=== PATIENT | male | born 1955 | race Caucasian/White ===

== ENCOUNTER 2017-10-10 14:18 | Inpatient (IN) | payer MEDICARE, OTHER, MEDICAID ==
[2017-10-10] MEDS: morphine 4 MG/ML VIAL IV (19:07)
[2017-10-10] MEDS: SOD CHLORIDE 0.9% 1,000 ML IV ×2 (19:07→20:43)
[2017-10-10] MEDS: ONDANSETRON 4 MG INJ IV (19:07)
[2017-10-10 19:09] LABS: ADD MAN DIFF? NO
[2017-10-10 19:11] LABS: BASOPHILS % 0.2 % (0.0-2.0); EOSINOPHILS # 0.2 10^3/ul (0.0-0.5); EOSINOPHILS % 2.1 % (0.0-7.0); HEMOGLOBIN 8.3 g/dl (14.0-18.0); LYMPHOCYTES % 11.2 % (15.0-51.0); MEAN CORPUSCULAR HEMOGLOBIN 27.7 pg (29.0-33.0); MEAN CORPUSCULAR HGB CONC 31.9 g/dl (32.0-37.0); MEAN CORPUSCULAR VOLUME 86.7 fl (82.0-101.0); MEAN PLATELET VOLUME 9.8 fl (7.4-10.4); MONOCYTE # 0.7 10^3/ul (0.3-0.9); MONOCYTES % 8.1 % (0.0-11.0); NEUTROPHILS % 78.1 % (39.0-77.0); PLATELET COUNT 226 10^3/UL (140-415); RED CELL DISTRIBUTION WIDTH 16.6 % (11.5-14.5)
[2017-10-10 19:11] LABS: WHITE BLOOD COUNT 8.9 10^3/ul (4.8-10.8)
[2017-10-10 19:33] LABS: ALANINE AMINOTRANSFERASE 24 IU/L (13-69); ALBUMIN 4.1 g/dl (3.3-4.9); ALBUMIN/GLOBULIN RATIO 1.13; ALKALINE PHOSPHATASE 62 IU/L (42-121); ANION GAP 21 (8-16); ASPARTATE AMINO TRANSFERASE 21 IU/L (15-46); BILIRUBIN,INDIRECT 0.3 mg/dl (0-1.1); BILIRUBIN,TOTAL 0.3 mg/dl (0.2-1.3); CALCIUM 9.4 mg/dl (8.4-10.2); CARBON DIOXIDE 24 mmol/L (21-31); CHLORIDE 108 mmol/L (97-110); CREATININE 2.84 mg/dl (0.61-1.24); GLUCOSE 111 mg/dl (70-220); LIPASE 159 U/L (23-300); POTASSIUM 4.6 mmol/L (3.5-5.1); SODIUM 148 mmol/L (135-144); TOTAL PROTEIN 7.7 g/dl (6.1-8.1)
[2017-10-10 19:41] LABS: BLOOD UREA NITROGEN 122 mg/dl (7-20)
[2017-10-10 19:58] LABS: ADD UMIC YES; UR ASCORBIC ACID NEGATIVE (NEGATIVE); UR BACTERIA FEW /HPF (NONE SEEN); UR BILIRUBIN (Dip) NEGATIVE (NEGATIVE); UR BLOOD (Dip) NEGATIVE (NEGATIVE); UR CLARITY CLEAR (CLEAR); UR COLOR STRAW (YELLOW); UR GLUCOSE (Dip) NEGATIVE (NEGATIVE); UR KETONES (Dip) NEGATIVE (NEGATIVE); UR LEUKOCYTE ESTERASE (Dip) NEGATIVE Leu/ul (NEGATIVE); UR NITRITE (Dip) NEGATIVE (NEGATIVE); UR RBC 0 /HPF (0-5); UR SPECIFIC GRAVITY (Dip) 1.009 (1.003-1.030); UR TOTAL PROTEIN (Dip) 1+ mg/dl (NEGATIVE); UR UROBILINOGEN (Dip) NEGATIVE (NEGATIVE); UR WBC 0 /HPF (0-5)
[2017-10-10] MEDS ORDERED: ALTEPLASE 100 MG INJ IV* (21:30)
[2017-10-10] MEDS ORDERED: ALTEPLASE (tPA) 1 MG/ML BOLUS SYG IV* (21:30)
[2017-10-10] MEDS ORDERED: NACL 0.9% 3 ML SYG IV (22:00)
[2017-10-10] MEDS: morphine 2 MG INJ IV (22:53)
[2017-10-10] MEDS: DEXTROSE 5%-0.45% NACL 1,000 ML IV (22:53)
[2017-10-10 23:15] LABS: IRON 36 ug/dl (35-150)
[2017-10-10 23:25] LABS: % IRON SATURATION 12 % SAT (22-52); TOTAL IRON BINDING CAPACITY 299 ug/dl (241-421)
[2017-10-11] MEDS: HALOPERIDOL 5 MG INJ IM (00:30)
[2017-10-11] MEDS: morphine 2 MG INJ IV ×2 (04:09→18:12)
[2017-10-11] MEDS: hydrALAzine 20 MG INJ IV (04:18)
[2017-10-11] MEDS: INSULIN ASPART [NOVOLOG] 3 ML PEN SC ×5 (04:38→21:00)
[2017-10-11 05:34] LABS: ADD MAN DIFF? NO
[2017-10-11 05:37] LABS: BASOPHILS % 0.3 % (0.0-2.0); EOSINOPHILS # 0.2 10^3/ul (0.0-0.5); EOSINOPHILS % 3.2 % (0.0-7.0); HEMOGLOBIN 8.2 g/dl (14.0-18.0); LYMPHOCYTES # 1.3 10^3/ul (0.8-2.9); LYMPHOCYTES % 18.7 % (15.0-51.0); MEAN CORPUSCULAR HEMOGLOBIN 27.5 pg (29.0-33.0); MEAN CORPUSCULAR HGB CONC 31.5 g/dl (32.0-37.0); MEAN CORPUSCULAR VOLUME 87.2 fl (82.0-101.0); MEAN PLATELET VOLUME 9.6 fl (7.4-10.4); MONOCYTE # 0.7 10^3/ul (0.3-0.9); MONOCYTES % 10.6 % (0.0-11.0); NEUTROPHIL # 4.7 10^3/ul (1.6-7.5); NEUTROPHILS % 66.9 % (39.0-77.0); PLATELET COUNT 227 10^3/UL (140-415); RED BLOOD COUNT 2.98 10^6/ul (4.70-6.10); RED CELL DISTRIBUTION WIDTH 16.6 % (11.5-14.5)
[2017-10-11 05:49] LABS: HEMOGLOBIN A1C 6.2 % (0-5.9)
[2017-10-11 06:10] LABS: ALANINE AMINOTRANSFERASE 22 IU/L (13-69); ALBUMIN 3.7 g/dl (3.3-4.9); ALBUMIN/GLOBULIN RATIO 1.23; ALKALINE PHOSPHATASE 48 IU/L (42-121); ANION GAP 16 (8-16); ASPARTATE AMINO TRANSFERASE 20 IU/L (15-46); BILIRUBIN,INDIRECT 0.4 mg/dl (0-1.1); BILIRUBIN,TOTAL 0.4 mg/dl (0.2-1.3); BLOOD UREA NITROGEN 116 mg/dl (7-20); CARBON DIOXIDE 27 mmol/L (21-31); CHLORIDE 111 mmol/L (97-110); CHOL/HDL RATIO 2.2 RATIO; CHOLESTEROL 97 mg/dl (100-200); CREATININE 2.59 mg/dl (0.61-1.24); GLUCOSE 86 mg/dl (70-220); HDL CHOLESTEROL 44 mg/dl (30-78); LDL CHOLESTEROL,CALCULATED 27 mg/dl; MAGNESIUM 1.6 mg/dl (1.7-2.5); POTASSIUM 4.7 mmol/L (3.5-5.1); SODIUM 149 mmol/L (135-144); TOTAL PROTEIN 6.7 g/dl (6.1-8.1); TRIGLYCERIDES 131 mg/dl (0-149)
[2017-10-11] MEDS: DEXTROSE 5%-0.45% NACL 1,000 ML IV ×4 (09:00→21:34)
[2017-10-11 09:10] LABS: URIC ACID 6.7 mg/dl (3.1-7.9)
[2017-10-11 09:40] LABS: IRON 27 ug/dl (35-150)
[2017-10-11 09:50] LABS: % IRON SATURATION 10 % SAT (22-52); TOTAL IRON BINDING CAPACITY 274 ug/dl (241-421)
[2017-10-11] MEDS: MAGNESIUM SULFATE 2 GM/50 ML 50 ML IVPB (11:30)
[2017-10-11] MEDS: LATANOPROST 0.005% 2.5 ML OPH BOTH EYES (21:33)
[2017-10-12 00:20] LABS: ADD UMIC YES; UR ASCORBIC ACID NEGATIVE (NEGATIVE); UR BILIRUBIN (Dip) NEGATIVE (NEGATIVE); UR BLOOD (Dip) 1+ mg/dL (NEGATIVE); UR CLARITY CLEAR (CLEAR); UR COLOR STRAW (YELLOW); UR GLUCOSE (Dip) NEGATIVE (NEGATIVE); UR KETONES (Dip) NEGATIVE (NEGATIVE); UR LEUKOCYTE ESTERASE (Dip) NEGATIVE Leu/ul (NEGATIVE); UR NITRITE (Dip) NEGATIVE (NEGATIVE); UR RBC 2 /HPF (0-5); UR SPECIFIC GRAVITY (Dip) 1.009 (1.003-1.030); UR TOTAL PROTEIN (Dip) 2+ mg/dl (NEGATIVE); UR UROBILINOGEN (Dip) NEGATIVE (NEGATIVE); UR WBC 0 /HPF (0-5)
[2017-10-12] MEDS: INSULIN ASPART [NOVOLOG] 3 ML PEN SC ×6 (00:33→21:00)
[2017-10-12] MEDS: hydrALAzine 20 MG INJ IV ×4 (00:35→16:48)
[2017-10-12] MEDS ORDERED: ACCU-CHEK XX (02:00)
[2017-10-12] MEDS: ACETAMINOPHEN 325 MG TAB PO (03:26)
[2017-10-12 04:26] LABS: SODIUM,URINE RANDOM 99 mmol/L (30-90)
[2017-10-12 04:26] LABS: POTASSIUM,URINE RANDOM 12.2 mmol/L (25-125)
[2017-10-12] MEDS: IODIXANOL LOCM 50 ML BTL (10:30)
[2017-10-12] MEDS: IODIXANOL LOCM 100 ML BTL (10:30)
[2017-10-12] MEDS: SOD CHLORIDE 0.9% 100 ML (10:30)
[2017-10-12] MEDS: DEXTROSE 5%-0.45% NACL 1,000 ML IV (11:58)
[2017-10-12] MEDS: morphine 2 MG INJ IV (12:37)
[2017-10-12] MEDS: ONDANSETRON 4 MG INJ IV (12:37)
[2017-10-12 15:44] LABS: ANION GAP 24 (8-16); BLOOD UREA NITROGEN 83 mg/dl (7-20); CALCIUM 8.7 mg/dl (8.4-10.2); CARBON DIOXIDE 21 mmol/L (21-31); CHLORIDE 112 mmol/L (97-110); CREATININE 2.45 mg/dl (0.61-1.24); GLUCOSE 86 mg/dl (70-220); POTASSIUM 4.2 mmol/L (3.5-5.1); SODIUM 153 mmol/L (135-144)
[2017-10-12] MEDS ORDERED: CLONIDINE 0.2 MG/24 HR PATCH TRANSDERM (16:30)
[2017-10-12] MEDS: DEXTROSE 5% 1,000 ML IV ×2 (17:52→22:35)
[2017-10-12] MEDS ORDERED: PENDING SANTYL ORDER FOR WOUND CARE XX (19:00)
[2017-10-12] MEDS ORDERED: VANCOMYCIN IV PER PHARMACY XX (20:30)
[2017-10-12] MEDS ORDERED: GLUCOSE GEL 15 GRAM TUBE BUCCAL (21:00)
[2017-10-12] MEDS ORDERED: DEXTROSE 50% 50 ML SYRINGE IV ×2 (21:00)
[2017-10-12] MEDS ORDERED: GLUCOSE GEL 15 GRAM TUBE PO ×2 (21:00)
[2017-10-12] MEDS ORDERED: GLUCAGON 1 MG INJ IM (21:00)
[2017-10-12] MEDS: LATANOPROST 0.005% 2.5 ML OPH BOTH EYES (21:16)
[2017-10-12] MEDS: PIPER-TAZO 2.25 GM (PMX) 50 ML IVPB (21:35)
[2017-10-12] MEDS: ACETAMINOPHEN 1000MG/100ML IV 65 ML IVPB (22:10)
[2017-10-12] MEDS: VANCOMYCIN 2 GM in SOD CHLORIDE 0.9% 500 ML IVPB (22:36)
[2017-10-12 23:29] LABS: LACTIC ACID 0.8 mmol/L (0.5-2.0)
[2017-10-13 00:37] LABS: ADD MAN DIFF? NO
[2017-10-13 00:51] LABS: WHITE BLOOD COUNT 10.2 10^3/ul (4.8-10.8)
[2017-10-13 00:51] LABS: BASOPHILS % 0.2 % (0.0-2.0); EOSINOPHILS # 0.2 10^3/ul (0.0-0.5); EOSINOPHILS % 1.5 % (0.0-7.0); HEMATOCRIT 25.9 % (42.0-52.0); HEMOGLOBIN 8.2 g/dl (14.0-18.0); LYMPHOCYTES # 0.8 10^3/ul (0.8-2.9); LYMPHOCYTES % 7.9 % (15.0-51.0); MEAN CORPUSCULAR HEMOGLOBIN 28.1 pg (29.0-33.0); MEAN CORPUSCULAR HGB CONC 31.7 g/dl (32.0-37.0); MEAN CORPUSCULAR VOLUME 88.7 fl (82.0-101.0); MEAN PLATELET VOLUME 9.6 fl (7.4-10.4); MONOCYTE # 0.6 10^3/ul (0.3-0.9); MONOCYTES % 5.9 % (0.0-11.0); NEUTROPHIL # 8.6 10^3/ul (1.6-7.5); NEUTROPHILS % 83.8 % (39.0-77.0); PLATELET COUNT 177 10^3/UL (140-415); RED BLOOD COUNT 2.92 10^6/ul (4.70-6.10); RED CELL DISTRIBUTION WIDTH 16.7 % (11.5-14.5)
[2017-10-13 00:59] LABS: INR 1.39; PROTIME 17.3 Sec (11.9-14.9); PT RATIO 1.4
[2017-10-13] MEDS: INSULIN ASPART [NOVOLOG] 3 ML PEN SC ×6 (01:00→20:58)
[2017-10-13] MEDS: SOD CHLORIDE 0.9% 1,000 ML IV ×3 (02:03→23:13)
[2017-10-13] MEDS: PIPER-TAZO 2.25 GM (PMX) 50 ML IVPB ×5 (02:07→23:13)
[2017-10-13 02:08] LABS: AADO2 Arterial 39.8 mmHg (7.0-24.0); Allen Test ACCEPTAB; Arterial Base Excess 0.3 mmol/L (-3.0-3); Arterial Blood Gas Oxygen Sat 93.7 mmHG (95.0-98.0); Arterial COHb 0.6 % (0.0-3.0); Arterial Fraction of Oxyhgb 92.6 % (93.0-99.0); Arterial HCO3 23.9 mmol/L (22.0-26.0); Arterial MetHb 0.6 % (0.0-1.5); Arterial Total Hemglobin 8.2 g/dl (12.0-18.0); MODE ROOM AIR; Site Left Radial
[2017-10-13] MEDS ORDERED: GLYCOPYRROLATE 0.4 MG INJ (02:32)
[2017-10-13] MEDS ORDERED: DEXAMETHASONE 4 MG/ML 1 ML INJ (02:32)
[2017-10-13] MEDS ORDERED: PROPOFOL 20 ML (02:32)
[2017-10-13] MEDS ORDERED: MIDAZOLAM 1 MG/ML 2 ML INJ (02:32)
[2017-10-13] MEDS ORDERED: ONDANSETRON 4 MG INJ (02:32)
[2017-10-13] MEDS ORDERED: NEOSTIGMINE 3 MG/3 ML SYRINGE (02:32)
[2017-10-13] MEDS ORDERED: ROCURONIUM 50 MG INJ ×2 (02:32→06:43)
[2017-10-13] MEDS ORDERED: FENTAnyl 50 MCG/ML VIAL (02:32)
[2017-10-13] MEDS ORDERED: CEFAZOLIN 1 GM INJ (02:32)
[2017-10-13 02:35] LABS: ADD MAN DIFF? NO
[2017-10-13 02:38] LABS: WHITE BLOOD COUNT 10.3 10^3/ul (4.8-10.8)
[2017-10-13 02:38] LABS: BASOPHILS % 0.2 % (0.0-2.0); EOSINOPHILS # 0.2 10^3/ul (0.0-0.5); EOSINOPHILS % 1.6 % (0.0-7.0); HEMATOCRIT 25.4 % (42.0-52.0); HEMOGLOBIN 7.9 g/dl (14.0-18.0); LYMPHOCYTES # 0.9 10^3/ul (0.8-2.9); LYMPHOCYTES % 8.5 % (15.0-51.0); MEAN CORPUSCULAR HEMOGLOBIN 27.8 pg (29.0-33.0); MEAN CORPUSCULAR HGB CONC 31.1 g/dl (32.0-37.0); MEAN CORPUSCULAR VOLUME 89.4 fl (82.0-101.0); MEAN PLATELET VOLUME 9.3 fl (7.4-10.4); MONOCYTE # 0.7 10^3/ul (0.3-0.9); MONOCYTES % 6.9 % (0.0-11.0); NEUTROPHIL # 8.4 10^3/ul (1.6-7.5); NEUTROPHILS % 81.8 % (39.0-77.0); PLATELET COUNT 167 10^3/UL (140-415); RED BLOOD COUNT 2.84 10^6/ul (4.70-6.10); RED CELL DISTRIBUTION WIDTH 16.8 % (11.5-14.5)
[2017-10-13 02:54] LABS: ADD UMIC YES; UR AMORPHOUS CRYSTAL FEW /HPF (NONE SEEN); UR ASCORBIC ACID NEGATIVE (NEGATIVE); UR BILIRUBIN (Dip) NEGATIVE (NEGATIVE); UR BLOOD (Dip) 1+ mg/dL (NEGATIVE); UR CLARITY CLEAR (CLEAR); UR COLOR YELLOW (YELLOW); UR GLUCOSE (Dip) NEGATIVE (NEGATIVE); UR KETONES (Dip) NEGATIVE (NEGATIVE); UR LEUKOCYTE ESTERASE (Dip) NEGATIVE Leu/ul (NEGATIVE); UR NITRITE (Dip) NEGATIVE (NEGATIVE); UR RBC 1 /HPF (0-5); UR SPECIFIC GRAVITY (Dip) 1.016 (1.003-1.030); UR SQUAMOUS EPITHELIAL CELL FEW /HPF (FEW); UR TOTAL PROTEIN (Dip) 2+ mg/dl (NEGATIVE); UR UROBILINOGEN (Dip) NEGATIVE (NEGATIVE); UR WBC 2 /HPF (0-5)
[2017-10-13 02:57] LABS: LACTIC ACID 0.8 mmol/L (0.5-2.0)
[2017-10-13 03:00] LABS: ALANINE AMINOTRANSFERASE 17 IU/L (13-69); ALKALINE PHOSPHATASE 49 IU/L (42-121); ANION GAP 16 (8-16); ASPARTATE AMINO TRANSFERASE 19 IU/L (15-46); BILIRUBIN,INDIRECT 0.4 mg/dl (0-1.1); BILIRUBIN,TOTAL 0.4 mg/dl (0.2-1.3); BLOOD UREA NITROGEN 83 mg/dl (7-20); CALCIUM 8.5 mg/dl (8.4-10.2); CARBON DIOXIDE 27 mmol/L (21-31); CHLORIDE 116 mmol/L (97-110); CREATININE 3.06 mg/dl (0.61-1.24); GLUCOSE 87 mg/dl (70-220); POTASSIUM 4.5 mmol/L (3.5-5.1); SODIUM 154 mmol/L (135-144); TOTAL PROTEIN 6.3 g/dl (6.1-8.1)
[2017-10-13 04:15] LABS: IMMEDIATE SPIN CROSSMATCH 1 8
[2017-10-13] MEDS: POLYMYXIN/BACITRACIN 1L IRRIG (04:22)
[2017-10-13] MEDS ORDERED: ETOMIDATE 20 MG INJ (07:00)
[2017-10-13] MEDS ORDERED: EPHEDrine SULFATE 50 MG/5 ML SYG IV (10:00)
[2017-10-13] MEDS ORDERED: LABETALOL HCL 20MG INJ IV (10:00)
[2017-10-13] MEDS ORDERED: hydrALAzine 20 MG INJ IV ×2 (10:00→16:00)
[2017-10-13] MEDS ORDERED: IPRATROPIUM (NEB) 0.5 MG/2.5 ML AMP HHN (10:00)
[2017-10-13] MEDS ORDERED: FENTAnyl 50 MCG/ML VIAL IV ×3 (10:00)
[2017-10-13] MEDS ORDERED: HYDROmorphONE (0.2 MG/ML) 10ML SYG IV ×3 (10:00)
[2017-10-13] MEDS ORDERED: ONDANSETRON 4 MG INJ IV (10:00)
[2017-10-13] MEDS ORDERED: DIPHENHYDRAMINE 50 MG INJ IV (10:00)
[2017-10-13] MEDS ORDERED: ALBUTEROL 0.083% (NEB) 2.5 MG/3 ML AMP HHN (10:00)
[2017-10-13] MEDS ORDERED: MIDAZOLAM 1 MG/ML 2 ML INJ IV (10:00)
[2017-10-13] MEDS: DEXTROSE 5% 1,000 ML IV (10:30)
[2017-10-13 11:12] LABS: ADD MAN DIFF? NO
[2017-10-13 11:24] LABS: WHITE BLOOD COUNT 7.6 10^3/ul (4.8-10.8)
[2017-10-13 11:24] LABS: BASOPHILS % 0.1 % (0.0-2.0); EOSINOPHILS # 0.2 10^3/ul (0.0-0.5); EOSINOPHILS % 2.1 % (0.0-7.0); HEMATOCRIT 26.5 % (42.0-52.0); HEMOGLOBIN 8.5 g/dl (14.0-18.0); LYMPHOCYTES # 1.1 10^3/ul (0.8-2.9); MEAN CORPUSCULAR HEMOGLOBIN 28.6 pg (29.0-33.0); MEAN CORPUSCULAR HGB CONC 32.1 g/dl (32.0-37.0); MEAN CORPUSCULAR VOLUME 89.2 fl (82.0-101.0); MEAN PLATELET VOLUME 9.9 fl (7.4-10.4); MONOCYTE # 0.6 10^3/ul (0.3-0.9); MONOCYTES % 7.9 % (0.0-11.0); NEUTROPHIL # 5.7 10^3/ul (1.6-7.5); NEUTROPHILS % 75.4 % (39.0-77.0); PLATELET COUNT 142 10^3/UL (140-415); POSITIVE DIFF @See below; RED BLOOD COUNT 2.97 10^6/ul (4.70-6.10); RED CELL DISTRIBUTION WIDTH 16.1 % (11.5-14.5)
[2017-10-13] MEDS: PROPOFOL 100 ML IV ×2 (11:36→16:26)
[2017-10-13 11:37] LABS: AADO2 Arterial 169.4 mmHg (7.0-24.0); Allen Test ACCEPTAB; Arterial Base Excess -6.7 mmol/L (-3.0-3); Arterial Blood Gas Oxygen Sat 94.8 mmHG (95.0-98.0); Arterial COHb 0.2 % (0.0-3.0); Arterial Fraction of Oxyhgb 94.3 % (93.0-99.0); Arterial HCO3 17.8 mmol/L (22.0-26.0); Arterial MetHb 0.3 % (0.0-1.5); Arterial Total Hemglobin 10.2 g/dl (12.0-18.0); Arterial pCO2 31.9 mmhg (35-45); MODE VENT - AC; Site Right Radial
[2017-10-13 11:44] LABS: ANION GAP 16 (8-16); BLOOD UREA NITROGEN 69 mg/dl (7-20); CALCIUM 7.2 mg/dl (8.4-10.2); CARBON DIOXIDE 21 mmol/L (21-31); CHLORIDE 116 mmol/L (97-110); CREATININE 2.76 mg/dl (0.61-1.24); GLUCOSE 72 mg/dl (70-220); POTASSIUM 4.1 mmol/L (3.5-5.1); SODIUM 149 mmol/L (135-144)
[2017-10-13] MEDS: DEXTROSE 5% 250 ML IV ×7 (12:24→23:13)
[2017-10-13 12:37] LABS: INR 1.34; PROTIME 16.8 Sec (11.9-14.9); PT RATIO 1.3
[2017-10-13] MEDS ORDERED: VANCOMYCIN 2 GM in SOD CHLORIDE 0.9% 500 ML IVPB (16:00)
[2017-10-13 16:06] LABS: CREATININE, RANDOM URINE 33 mg/dL (20-370); MICROALBUMIN 31.7 mg/dL; MICROALBUMIN/CREATININE RATIO 961 (<30)
[2017-10-13 20:04] LABS: AADO2 Arterial 83.7 mmHg (7.0-24.0); Allen Test ACCEPTAB; Arterial Blood Gas Oxygen Sat 98.6 mmHG (95.0-98.0); Arterial COHb 0.3 % (0.0-3.0); Arterial Fraction of Oxyhgb 97.9 % (93.0-99.0); Arterial HCO3 16.5 mmol/L (22.0-26.0); Arterial MetHb 0.4 % (0.0-1.5); Arterial pCO2 26.7 mmhg (35-45); MODE VENT - AC; Site Right Radial
[2017-10-13 20:23] LABS: ADD MAN DIFF? NO
[2017-10-13 20:25] LABS: WHITE BLOOD COUNT 9.5 10^3/ul (4.8-10.8)
[2017-10-13 20:25] LABS: BASOPHILS % 0.2 % (0.0-2.0); EOSINOPHILS # 0.2 10^3/ul (0.0-0.5); EOSINOPHILS % 1.8 % (0.0-7.0); HEMATOCRIT 25.2 % (42.0-52.0); HEMOGLOBIN 7.9 g/dl (14.0-18.0); LYMPHOCYTES # 0.8 10^3/ul (0.8-2.9); LYMPHOCYTES % 8.8 % (15.0-51.0); MEAN CORPUSCULAR HEMOGLOBIN 27.7 pg (29.0-33.0); MEAN CORPUSCULAR HGB CONC 31.3 g/dl (32.0-37.0); MEAN CORPUSCULAR VOLUME 88.4 fl (82.0-101.0); MEAN PLATELET VOLUME 9.7 fl (7.4-10.4); NEUTROPHIL # 7.5 10^3/ul (1.6-7.5); NEUTROPHILS % 78.8 % (39.0-77.0); PLATELET COUNT 174 10^3/UL (140-415); POSITIVE DIFF @See below; RED BLOOD COUNT 2.85 10^6/ul (4.70-6.10); RED CELL DISTRIBUTION WIDTH 16.3 % (11.5-14.5)
[2017-10-13 20:45] LABS: MAGNESIUM 1.4 mg/dl (1.7-2.5)
[2017-10-13 20:46] LABS: INR 1.35; PROTIME 16.9 Sec (11.9-14.9); PT RATIO 1.3
[2017-10-13 20:48] LABS: ANION GAP 15 (8-16); BLOOD UREA NITROGEN 69 mg/dl (7-20); CALCIUM 7.5 mg/dl (8.4-10.2); CARBON DIOXIDE 21 mmol/L (21-31); CHLORIDE 113 mmol/L (97-110); GLUCOSE 153 mg/dl (70-220); POTASSIUM 4.3 mmol/L (3.5-5.1); SODIUM 145 mmol/L (135-144)
[2017-10-13] MEDS: LATANOPROST 0.005% 2.5 ML OPH BOTH EYES (20:52)
[2017-10-14] MEDS: DEXTROSE 5% 250 ML IV ×11 (02:55→22:40)
[2017-10-14] MEDS: INSULIN ASPART [NOVOLOG] 3 ML PEN SC ×6 (03:07→21:00)
[2017-10-14 05:12] LABS: ADD MAN DIFF? NO
[2017-10-14] MEDS: PIPER-TAZO 2.25 GM (PMX) 50 ML IVPB ×3 (05:15→18:03)
[2017-10-14 05:24] LABS: ABNORMAL IP MESSAGE 1; BASOPHILS % 0.1 % (0.0-2.0); EOSINOPHILS # 0.2 10^3/ul (0.0-0.5); EOSINOPHILS % 1.7 % (0.0-7.0); HEMATOCRIT 21.3 % (42.0-52.0); LYMPHOCYTES # 0.9 10^3/ul (0.8-2.9); LYMPHOCYTES % 7.7 % (15.0-51.0); MEAN CORPUSCULAR HEMOGLOBIN 28.6 pg (29.0-33.0); MEAN CORPUSCULAR HGB CONC 32.4 g/dl (32.0-37.0); MEAN CORPUSCULAR VOLUME 88.4 fl (82.0-101.0); MEAN PLATELET VOLUME 10.4 fl (7.4-10.4); PLATELET COUNT 161 10^3/UL (140-415); POSITIVE DIFF @See below; RED BLOOD COUNT 2.41 10^6/ul (4.70-6.10); RED CELL DISTRIBUTION WIDTH 16.2 % (11.5-14.5)
[2017-10-14 05:24] LABS: WHITE BLOOD COUNT 11.1 10^3/ul (4.8-10.8)
[2017-10-14 05:30] LABS: HEMOGLOBIN 6.9 g/dl (14.0-18.0)
[2017-10-14 05:54] LABS: ANION GAP 14 (8-16); BLOOD UREA NITROGEN 68 mg/dl (7-20); CALCIUM 7.2 mg/dl (8.4-10.2); CARBON DIOXIDE 20 mmol/L (21-31); CHLORIDE 115 mmol/L (97-110); CREATININE 3.86 mg/dl (0.61-1.24); GLUCOSE 162 mg/dl (70-220); POTASSIUM 4.2 mmol/L (3.5-5.1); SODIUM 145 mmol/L (135-144)
[2017-10-14] MEDS: morphine 2 MG INJ IV ×2 (06:22→18:55)
[2017-10-14] MEDS: SOD CHLORIDE 0.9% 500 ML IV (07:05)
[2017-10-14] MEDS ORDERED: NORepinephrine 8MG/250 ML (PMX 250 ML IV (08:00)
[2017-10-14] MEDS: CALCIUM GLUCONATE 10% 2 GM in DEXTROSE 5% 100 ML IVPB (08:27)
[2017-10-14] MEDS ORDERED: MAGNESIUM SULFATE (GM) 50% 2 ML INJ IM (10:00)
[2017-10-14] MEDS ORDERED: VANCOMYCIN 1 GM 250 ML IVPB (10:00)
[2017-10-14] MEDS: MAGNESIUM SULFATE 1 GM/D5W 100 ML IVPB (10:22)
[2017-10-14 10:45] LABS: VANCOMYCIN,RANDOM 8.1 ug/ml
[2017-10-14 10:59] LABS: HEMATOCRIT 23.3 % (42.0-52.0); HEMOGLOBIN 7.6 g/dl (14.0-18.0)
[2017-10-14] MEDS ORDERED: MIDAZOLAM 1 MG/ML 2 ML INJ (11:16)
[2017-10-14] MEDS: PROPOFOL 100 ML IV ×2 (11:30→23:30)
[2017-10-14] MEDS: MIDAZOLAM 1 MG/ML 2 ML INJ IV (11:56)
[2017-10-14] MEDS: SOD CHLORIDE 0.9% 250 ML IV* (11:57)
[2017-10-14] MEDS: VANCOMYCIN 1 GM 250 ML IVPB (12:16)
[2017-10-14] MEDS: FUROSEMIDE 20 MG INJ IV (15:29)
[2017-10-14 16:03] LABS: AADO2 Arterial 93.7 mmHg (7.0-24.0); Allen Test ACCEPTAB; Arterial Base Excess -7.1 mmol/L (-3.0-3); Arterial Blood Gas Oxygen Sat 95.9 mmHG (95.0-98.0); Arterial COHb 0.1 % (0.0-3.0); Arterial Fraction of Oxyhgb 95.3 % (93.0-99.0); Arterial HCO3 17.2 mmol/L (22.0-26.0); Arterial MetHb 0.5 % (0.0-1.5); Arterial pCO2 29.8 mmhg (35-45); Blood Gas PS 10; MODE VENT - CPAP; Site Right Radial
[2017-10-14 19:30] LABS: ADD MAN DIFF? NO
[2017-10-14 19:33] LABS: BASOPHILS % 0.2 % (0.0-2.0); EOSINOPHILS # 0.4 10^3/ul (0.0-0.5); EOSINOPHILS % 3.1 % (0.0-7.0); HEMATOCRIT 22.7 % (42.0-52.0); HEMOGLOBIN 7.6 g/dl (14.0-18.0); LYMPHOCYTES # 1.1 10^3/ul (0.8-2.9); LYMPHOCYTES % 8.4 % (15.0-51.0); MEAN CORPUSCULAR HGB CONC 33.5 g/dl (32.0-37.0); MEAN CORPUSCULAR VOLUME 86.6 fl (82.0-101.0); MEAN PLATELET VOLUME 9.8 fl (7.4-10.4); MONOCYTE # 1.1 10^3/ul (0.3-0.9); MONOCYTES % 8.4 % (0.0-11.0); PLATELET COUNT 146 10^3/UL (140-415); RED BLOOD COUNT 2.62 10^6/ul (4.70-6.10); RED CELL DISTRIBUTION WIDTH 15.7 % (11.5-14.5)
[2017-10-14 19:33] LABS: WHITE BLOOD COUNT 12.7 10^3/ul (4.8-10.8)
[2017-10-14 19:52] LABS: LACTIC ACID 0.8 mmol/L (0.5-2.0)
[2017-10-14 19:53] LABS: ANION GAP 17 (8-16); BLOOD UREA NITROGEN 72 mg/dl (7-20); CALCIUM 7.8 mg/dl (8.4-10.2); CARBON DIOXIDE 18 mmol/L (21-31); CHLORIDE 113 mmol/L (97-110); CREATININE 4.52 mg/dl (0.61-1.24); GLUCOSE 114 mg/dl (70-220); MAGNESIUM 1.6 mg/dl (1.7-2.5); POTASSIUM 4.2 mmol/L (3.5-5.1); SODIUM 144 mmol/L (135-144)
[2017-10-14] MEDS: LATANOPROST 0.005% 2.5 ML OPH BOTH EYES (20:56)
[2017-10-14] MEDS: HEPARIN 5,000 UNIT/0.5 ML VIAL SC (22:43)
[2017-10-15] MEDS: DEXTROSE 5% 500 ML IV ×6 (00:02→20:16)
[2017-10-15] MEDS: PIPER-TAZO 2.25 GM (PMX) 50 ML IVPB ×3 (00:33→13:48)
[2017-10-15] MEDS: INSULIN ASPART [NOVOLOG] 3 ML PEN SC ×6 (00:40→21:15)
[2017-10-15 05:18] LABS: ADD MAN DIFF? NO
[2017-10-15 05:20] LABS: WHITE BLOOD COUNT 11.1 10^3/ul (4.8-10.8)
[2017-10-15 05:20] LABS: BASOPHILS % 0.2 % (0.0-2.0); EOSINOPHILS # 0.4 10^3/ul (0.0-0.5); EOSINOPHILS % 3.8 % (0.0-7.0); HEMATOCRIT 21.3 % (42.0-52.0); HEMOGLOBIN 7.1 g/dl (14.0-18.0); LYMPHOCYTES % 9.2 % (15.0-51.0); MEAN CORPUSCULAR HEMOGLOBIN 28.9 pg (29.0-33.0); MEAN CORPUSCULAR HGB CONC 33.3 g/dl (32.0-37.0); MEAN CORPUSCULAR VOLUME 86.6 fl (82.0-101.0); MEAN PLATELET VOLUME 10.2 fl (7.4-10.4); MONOCYTE # 0.9 10^3/ul (0.3-0.9); MONOCYTES % 8.3 % (0.0-11.0); NEUTROPHIL # 8.6 10^3/ul (1.6-7.5); NEUTROPHILS % 77.4 % (39.0-77.0); PLATELET COUNT 156 10^3/UL (140-415); RED BLOOD COUNT 2.46 10^6/ul (4.70-6.10); RED CELL DISTRIBUTION WIDTH 15.6 % (11.5-14.5)
[2017-10-15 05:38] LABS: INR 1.26; PT RATIO 1.3
[2017-10-15 05:47] LABS: ALANINE AMINOTRANSFERASE 27 IU/L (13-69); ALBUMIN 2.1 g/dl (3.3-4.9); ALKALINE PHOSPHATASE 57 IU/L (42-121); ANION GAP 17 (8-16); ASPARTATE AMINO TRANSFERASE 23 IU/L (15-46); BILIRUBIN,INDIRECT 0.4 mg/dl (0-1.1); BILIRUBIN,TOTAL 0.4 mg/dl (0.2-1.3); BLOOD UREA NITROGEN 68 mg/dl (7-20); CALCIUM 7.8 mg/dl (8.4-10.2); CARBON DIOXIDE 18 mmol/L (21-31); CHLORIDE 113 mmol/L (97-110); CREATININE 4.53 mg/dl (0.61-1.24); GLUCOSE 125 mg/dl (70-220); POTASSIUM 4.1 mmol/L (3.5-5.1); SODIUM 144 mmol/L (135-144); TOTAL PROTEIN 4.7 g/dl (6.1-8.1)
[2017-10-15 05:48] LABS: ANION GAP 15 (8-16); BLOOD UREA NITROGEN 68 mg/dl (7-20); CALCIUM 7.9 mg/dl (8.4-10.2); CARBON DIOXIDE 18 mmol/L (21-31); CHLORIDE 114 mmol/L (97-110); CREATININE 4.64 mg/dl (0.61-1.24); GLUCOSE 125 mg/dl (70-220); POTASSIUM 4.1 mmol/L (3.5-5.1); SODIUM 143 mmol/L (135-144)
[2017-10-15] MEDS: HEPARIN 5,000 UNIT/0.5 ML VIAL SC ×3 (08:16→21:13)
[2017-10-15] MEDS: morphine 2 MG INJ IV (08:22)
[2017-10-15] MEDS: PROPOFOL 100 ML IV ×2 (11:00→22:53)
[2017-10-15 14:03] LABS: ADD MAN DIFF? NO
[2017-10-15 14:04] LABS: WHITE BLOOD COUNT 11.2 10^3/ul (4.8-10.8)
[2017-10-15 14:04] LABS: BASOPHILS % 0.2 % (0.0-2.0); EOSINOPHILS # 0.4 10^3/ul (0.0-0.5); EOSINOPHILS % 3.7 % (0.0-7.0); HEMATOCRIT 23.3 % (42.0-52.0); HEMOGLOBIN 7.8 g/dl (14.0-18.0); LYMPHOCYTES # 0.9 10^3/ul (0.8-2.9); LYMPHOCYTES % 8.2 % (15.0-51.0); MEAN CORPUSCULAR HGB CONC 33.5 g/dl (32.0-37.0); MEAN CORPUSCULAR VOLUME 86.6 fl (82.0-101.0); MEAN PLATELET VOLUME 9.8 fl (7.4-10.4); MONOCYTE # 0.9 10^3/ul (0.3-0.9); MONOCYTES % 8.1 % (0.0-11.0); NEUTROPHIL # 8.8 10^3/ul (1.6-7.5); NEUTROPHILS % 78.1 % (39.0-77.0); PLATELET COUNT 154 10^3/UL (140-415); RED BLOOD COUNT 2.69 10^6/ul (4.70-6.10); RED CELL DISTRIBUTION WIDTH 15.7 % (11.5-14.5)
[2017-10-15] MEDS: LATANOPROST 0.005% 2.5 ML OPH BOTH EYES (21:09)
[2017-10-16] MEDS: INSULIN ASPART [NOVOLOG] 3 ML PEN SC ×6 (00:41→21:00)
[2017-10-16] MEDS: DEXTROSE 5% 500 ML IV ×4 (00:41→14:40)
[2017-10-16] MEDS: morphine 2 MG INJ IV ×4 (04:00→23:16)
[2017-10-16 05:12] LABS: ADD MAN DIFF? NO
[2017-10-16 05:26] LABS: WHITE BLOOD COUNT 10.5 10^3/ul (4.8-10.8)
[2017-10-16 05:26] LABS: BASOPHILS % 0.1 % (0.0-2.0); EOSINOPHILS # 0.4 10^3/ul (0.0-0.5); EOSINOPHILS % 3.3 % (0.0-7.0); HEMATOCRIT 23.8 % (42.0-52.0); LYMPHOCYTES # 0.9 10^3/ul (0.8-2.9); LYMPHOCYTES % 8.8 % (15.0-51.0); MEAN CORPUSCULAR HEMOGLOBIN 28.8 pg (29.0-33.0); MEAN CORPUSCULAR HGB CONC 33.6 g/dl (32.0-37.0); MEAN CORPUSCULAR VOLUME 85.6 fl (82.0-101.0); MEAN PLATELET VOLUME 10.1 fl (7.4-10.4); MONOCYTE # 0.8 10^3/ul (0.3-0.9); MONOCYTES % 7.5 % (0.0-11.0); NEUTROPHIL # 8.3 10^3/ul (1.6-7.5); PLATELET COUNT 153 10^3/UL (140-415); RED BLOOD COUNT 2.78 10^6/ul (4.70-6.10); RED CELL DISTRIBUTION WIDTH 15.5 % (11.5-14.5)
[2017-10-16 06:39] LABS: MAGNESIUM 1.5 mg/dl (1.7-2.5)
[2017-10-16 06:40] LABS: ANION GAP 15 (8-16); BLOOD UREA NITROGEN 65 mg/dl (7-20); CALCIUM 8.1 mg/dl (8.4-10.2); CARBON DIOXIDE 20 mmol/L (21-31); CHLORIDE 112 mmol/L (97-110); CREATININE 4.66 mg/dl (0.61-1.24); GLUCOSE 112 mg/dl (70-220); POTASSIUM 3.9 mmol/L (3.5-5.1); SODIUM 143 mmol/L (135-144)
[2017-10-16] MEDS: HEPARIN 5,000 UNIT/0.5 ML VIAL SC ×2 (09:00→21:00)
[2017-10-16] MEDS ORDERED: FENTAnyl 50 MCG/ML VIAL ×3 (09:37→11:34)
[2017-10-16] MEDS ORDERED: MIDAZOLAM 1 MG/ML 2 ML INJ (09:38)
[2017-10-16] MEDS ORDERED: FENTAnyl 50 MCG/ML VIAL IV ×4 (10:00→12:30)
[2017-10-16] MEDS ORDERED: HYDROmorphONE 0.5 MG/0.5 ML SYG IV ×2 (10:00)
[2017-10-16] MEDS ORDERED: MAGNESIUM SULFATE 2 GM/50 ML 50 ML IVPB (10:30)
[2017-10-16] MEDS ORDERED: KETAMINE (50 MG/ML) 10 ML VIAL (10:50)
[2017-10-16] MEDS ORDERED: ETOMIDATE 20 MG INJ (10:55)
[2017-10-16] MEDS ORDERED: METOCLOPRAMIDE 10 MG INJ (10:55)
[2017-10-16] MEDS ORDERED: LIDOCAINE 2% (SDV) 5 ML INJ (10:55)
[2017-10-16] MEDS ORDERED: PROPOFOL 20 ML ×2 (10:55→11:38)
[2017-10-16] MEDS: CEFAZOLIN 1 GM/50 ML (PMX) 50 ML IVPB ×2 (11:00→20:58)
[2017-10-16] MEDS ORDERED: NEOMYC/POLYMYX/BACIT 30 GM OINT (11:58)
[2017-10-16] MEDS ORDERED: hydrALAzine 20 MG INJ IV (12:30)
[2017-10-16] MEDS ORDERED: HYDROmorphONE (0.2 MG/ML) 10ML SYG IV ×3 (12:30)
[2017-10-16] MEDS ORDERED: DIPHENHYDRAMINE 50 MG INJ IV (12:30)
[2017-10-16] MEDS ORDERED: IPRATROPIUM (NEB) 0.5 MG/2.5 ML AMP HHN (12:30)
[2017-10-16] MEDS ORDERED: LABETALOL HCL 20MG INJ IV (12:30)
[2017-10-16] MEDS ORDERED: ONDANSETRON 4 MG INJ IV (12:30)
[2017-10-16] MEDS ORDERED: MEPERIDINE 25 MG INJ IV (12:30)
[2017-10-16] MEDS: MAGNESIUM SULFATE 4 GM/100 ML 100 ML IVPB (14:40)
[2017-10-16] MEDS: DEXTROSE 5%-0.45% NACL 500 ML IV (20:27)
[2017-10-16] MEDS: ALLOPURINOL 100 MG TAB PO (20:59)
[2017-10-16] MEDS: ATORVASTATIN 20 MG TAB PO (20:59)
[2017-10-16] MEDS: NIFEdipine (XL) 30 MG TAB PO (20:59)
[2017-10-16] MEDS: LATANOPROST 0.005% 2.5 ML OPH BOTH EYES (23:05)
[2017-10-17 05:47] LABS: ADD MAN DIFF? NO
[2017-10-17 05:58] LABS: BASOPHILS % 0.2 % (0.0-2.0); EOSINOPHILS # 0.4 10^3/ul (0.0-0.5); EOSINOPHILS % 4.1 % (0.0-7.0); HEMATOCRIT 24.1 % (42.0-52.0); HEMOGLOBIN 7.9 g/dl (14.0-18.0); LYMPHOCYTES # 1.1 10^3/ul (0.8-2.9); LYMPHOCYTES % 10.8 % (15.0-51.0); MEAN CORPUSCULAR HEMOGLOBIN 28.6 pg (29.0-33.0); MEAN CORPUSCULAR HGB CONC 32.8 g/dl (32.0-37.0); MEAN CORPUSCULAR VOLUME 87.3 fl (82.0-101.0); MEAN PLATELET VOLUME 9.9 fl (7.4-10.4); MONOCYTE # 0.7 10^3/ul (0.3-0.9); MONOCYTES % 7.5 % (0.0-11.0); NEUTROPHIL # 7.4 10^3/ul (1.6-7.5); NEUTROPHILS % 75.9 % (39.0-77.0); PLATELET COUNT 171 10^3/UL (140-415); RED BLOOD COUNT 2.76 10^6/ul (4.70-6.10); RED CELL DISTRIBUTION WIDTH 15.5 % (11.5-14.5)
[2017-10-17 05:58] LABS: WHITE BLOOD COUNT 9.8 10^3/ul (4.8-10.8)
[2017-10-17 06:21] LABS: ANION GAP 15 (8-16); BLOOD UREA NITROGEN 60 mg/dl (7-20); CALCIUM 7.9 mg/dl (8.4-10.2); CARBON DIOXIDE 19 mmol/L (21-31); CHLORIDE 113 mmol/L (97-110); CREATININE 4.25 mg/dl (0.61-1.24); GLUCOSE 109 mg/dl (70-220); MAGNESIUM 2.1 mg/dl (1.7-2.5); POTASSIUM 4.2 mmol/L (3.5-5.1); SODIUM 143 mmol/L (135-144)
[2017-10-17] MEDS: ALLOPURINOL 100 MG TAB PO ×2 (08:30→20:56)
[2017-10-17] MEDS: LOSARTAN 25 MG TAB PO (08:30)
[2017-10-17] MEDS: NIFEdipine (XL) 30 MG TAB PO ×2 (08:31→21:00)
[2017-10-17] MEDS: CEFAZOLIN 1 GM/50 ML (PMX) 50 ML IVPB ×2 (08:32→20:55)
[2017-10-17] MEDS: BUMETANIDE 1 MG TAB PO (08:35)
[2017-10-17] MEDS: HEPARIN 5,000 UNIT/0.5 ML VIAL SC ×2 (08:37→20:57)
[2017-10-17] MEDS: INSULIN ASPART [NOVOLOG] 3 ML PEN SC ×4 (08:38→21:00)
[2017-10-17] MEDS: DEXTROSE 5%-0.45% NACL 500 ML IV (11:38)
[2017-10-17] MEDS: NEOMYC/POLYMYX/BACIT 0.9 GM OINT TOP (16:15)
[2017-10-17] MEDS: LATANOPROST 0.005% 2.5 ML OPH BOTH EYES (20:55)
[2017-10-17] MEDS: ATORVASTATIN 20 MG TAB PO (20:56)
[2017-10-17] MEDS: morphine 2 MG INJ IV (21:19)
[2017-10-18] MEDS: morphine 2 MG INJ IV (05:55)
[2017-10-18] MEDS: INSULIN ASPART [NOVOLOG] 3 ML PEN SC ×4 (08:00→21:00)
[2017-10-18 08:54] LABS: ADD MAN DIFF? NO
[2017-10-18] MEDS: BUMETANIDE 1 MG TAB PO (08:59)
[2017-10-18] MEDS: NIFEdipine (XL) 30 MG TAB PO ×2 (08:59→22:30)
[2017-10-18] MEDS: LOSARTAN 25 MG TAB PO (09:00)
[2017-10-18] MEDS: HEPARIN 5,000 UNIT/0.5 ML VIAL SC ×2 (09:00→22:51)
[2017-10-18] MEDS: ALLOPURINOL 100 MG TAB PO ×2 (09:00→22:29)
[2017-10-18] MEDS: CEFAZOLIN 1 GM/50 ML (PMX) 50 ML IVPB ×2 (09:01→22:26)
[2017-10-18 09:04] LABS: WHITE BLOOD COUNT 11.5 10^3/ul (4.8-10.8)
[2017-10-18 09:04] LABS: BASOPHILS % 0.1 % (0.0-2.0); EOSINOPHILS # 0.3 10^3/ul (0.0-0.5); EOSINOPHILS % 2.9 % (0.0-7.0); HEMATOCRIT 22.5 % (42.0-52.0); HEMOGLOBIN 7.3 g/dl (14.0-18.0); LYMPHOCYTES # 1.2 10^3/ul (0.8-2.9); LYMPHOCYTES % 10.2 % (15.0-51.0); MEAN CORPUSCULAR HEMOGLOBIN 29.3 pg (29.0-33.0); MEAN CORPUSCULAR HGB CONC 32.4 g/dl (32.0-37.0); MEAN CORPUSCULAR VOLUME 90.4 fl (82.0-101.0); MEAN PLATELET VOLUME 9.5 fl (7.4-10.4); MONOCYTE # 0.6 10^3/ul (0.3-0.9); MONOCYTES % 5.5 % (0.0-11.0); NEUTROPHIL # 8.8 10^3/ul (1.6-7.5); NEUTROPHILS % 77.2 % (39.0-77.0); PLATELET COUNT 199 10^3/UL (140-415); RED BLOOD COUNT 2.49 10^6/ul (4.70-6.10); RED CELL DISTRIBUTION WIDTH 15.1 % (11.5-14.5)
[2017-10-18 09:35] LABS: ANION GAP 14 (8-16); BLOOD UREA NITROGEN 64 mg/dl (7-20); CALCIUM 7.8 mg/dl (8.4-10.2); CARBON DIOXIDE 19 mmol/L (21-31); CHLORIDE 110 mmol/L (97-110); CREATININE 4.62 mg/dl (0.61-1.24); GLUCOSE 88 mg/dl (70-220); POTASSIUM 3.9 mmol/L (3.5-5.1); SODIUM 139 mmol/L (135-144)
[2017-10-18 15:43] LABS: IMMEDIATE SPIN CROSSMATCH 1 1
[2017-10-18] MEDS: NEOMYC/POLYMYX/BACIT 30 GM OINT TOP (17:29)
[2017-10-18] MEDS: LATANOPROST 0.005% 2.5 ML OPH BOTH EYES (22:27)
[2017-10-18] MEDS: CITRIC ACID/SODIUM CITRATE 15 ML CUP PO (22:27)
[2017-10-18] MEDS: ATORVASTATIN 20 MG TAB PO (22:29)
[2017-10-19 06:54] LABS: ADD MAN DIFF? NO
[2017-10-19 06:58] LABS: WHITE BLOOD COUNT 10.7 10^3/ul (4.8-10.8)
[2017-10-19 06:58] LABS: ABNORMAL IP MESSAGE 1; BASOPHILS % 0.2 % (0.0-2.0); EOSINOPHILS # 0.4 10^3/ul (0.0-0.5); EOSINOPHILS % 3.4 % (0.0-7.0); HEMATOCRIT 24.1 % (42.0-52.0); HEMOGLOBIN 8.1 g/dl (14.0-18.0); LYMPHOCYTES # 1.1 10^3/ul (0.8-2.9); LYMPHOCYTES % 10.3 % (15.0-51.0); MEAN CORPUSCULAR HEMOGLOBIN 29.6 pg (29.0-33.0); MEAN CORPUSCULAR HGB CONC 33.6 g/dl (32.0-37.0); MEAN PLATELET VOLUME 9.5 fl (7.4-10.4); MONOCYTE # 0.6 10^3/ul (0.3-0.9); MONOCYTES % 5.6 % (0.0-11.0); NEUTROPHIL # 8.1 10^3/ul (1.6-7.5); NEUTROPHILS % 75.4 % (39.0-77.0); PLATELET COUNT 215 10^3/UL (140-415); POSITIVE DIFF @See below; RED BLOOD COUNT 2.74 10^6/ul (4.70-6.10); RED CELL DISTRIBUTION WIDTH 14.7 % (11.5-14.5)
[2017-10-19 07:17] LABS: ANION GAP 15 (8-16); BLOOD UREA NITROGEN 67 mg/dl (7-20); CALCIUM 7.8 mg/dl (8.4-10.2); CARBON DIOXIDE 18 mmol/L (21-31); CHLORIDE 109 mmol/L (97-110); CREATININE 4.29 mg/dl (0.61-1.24); GLUCOSE 101 mg/dl (70-220); POTASSIUM 4.2 mmol/L (3.5-5.1); SODIUM 138 mmol/L (135-144)
[2017-10-19] MEDS: INSULIN ASPART [NOVOLOG] 3 ML PEN SC ×4 (08:00→22:04)
[2017-10-19] MEDS: CEFAZOLIN 1 GM/50 ML (PMX) 50 ML IVPB (09:52)
[2017-10-19] MEDS: NIFEdipine (XL) 30 MG TAB PO ×2 (09:53→22:03)
[2017-10-19] MEDS: LOSARTAN 25 MG TAB PO (09:53)
[2017-10-19] MEDS: BUMETANIDE 1 MG TAB PO (09:53)
[2017-10-19] MEDS: HEPARIN 5,000 UNIT/0.5 ML VIAL SC ×2 (09:53→22:18)
[2017-10-19] MEDS: ALLOPURINOL 100 MG TAB PO ×2 (09:54→22:03)
[2017-10-19] MEDS: NEOMYC/POLYMYX/BACIT 30 GM OINT TOP (10:02)
[2017-10-19] MEDS: CITRIC ACID/SODIUM CITRATE 15 ML CUP PO ×3 (10:04→22:03)
[2017-10-19] MEDS: LATANOPROST 0.005% 2.5 ML OPH BOTH EYES (22:03)
[2017-10-19] MEDS: ATORVASTATIN 20 MG TAB PO (22:03)
[2017-10-20 06:53] LABS: ADD MAN DIFF? NO
[2017-10-20 06:56] LABS: ABNORMAL IP MESSAGE 1; BASOPHILS % 0.2 % (0.0-2.0); EOSINOPHILS # 0.4 10^3/ul (0.0-0.5); EOSINOPHILS % 3.6 % (0.0-7.0); HEMATOCRIT 25.8 % (42.0-52.0); HEMOGLOBIN 8.7 g/dl (14.0-18.0); LYMPHOCYTES # 1.1 10^3/ul (0.8-2.9); LYMPHOCYTES % 10.4 % (15.0-51.0); MEAN CORPUSCULAR HEMOGLOBIN 29.4 pg (29.0-33.0); MEAN CORPUSCULAR HGB CONC 33.7 g/dl (32.0-37.0); MEAN CORPUSCULAR VOLUME 87.2 fl (82.0-101.0); MEAN PLATELET VOLUME 9.4 fl (7.4-10.4); MONOCYTE # 0.6 10^3/ul (0.3-0.9); MONOCYTES % 5.6 % (0.0-11.0); NEUTROPHIL # 7.8 10^3/ul (1.6-7.5); PLATELET COUNT 270 10^3/UL (140-415); POSITIVE DIFF @See below; RED BLOOD COUNT 2.96 10^6/ul (4.70-6.10); RED CELL DISTRIBUTION WIDTH 14.9 % (11.5-14.5)
[2017-10-20 06:56] LABS: WHITE BLOOD COUNT 10.5 10^3/ul (4.8-10.8)
[2017-10-20 07:11] LABS: ANION GAP 16 (8-16); BLOOD UREA NITROGEN 68 mg/dl (7-20); CARBON DIOXIDE 20 mmol/L (21-31); CHLORIDE 107 mmol/L (97-110); CREATININE 3.95 mg/dl (0.61-1.24); GLUCOSE 104 mg/dl (70-220); POTASSIUM 4.1 mmol/L (3.5-5.1); SODIUM 139 mmol/L (135-144)
[2017-10-20] MEDS: INSULIN ASPART [NOVOLOG] 3 ML PEN SC ×2 (08:00→12:49)
[2017-10-20] MEDS: CITRIC ACID/SODIUM CITRATE 15 ML CUP PO ×2 (08:42→12:29)
[2017-10-20] MEDS: ALLOPURINOL 100 MG TAB PO (08:47)
[2017-10-20] MEDS: NIFEdipine (XL) 30 MG TAB PO (09:00)
[2017-10-20] MEDS: LOSARTAN 25 MG TAB PO (09:00)
[2017-10-20] MEDS: BUMETANIDE 1 MG TAB PO ×2 (09:00→09:05)
[2017-10-20] MEDS: NEOMYC/POLYMYX/BACIT 30 GM OINT TOP (09:04)
[2017-10-20] MEDS: HEPARIN 5,000 UNIT/0.5 ML VIAL SC (09:04)
[2017-10-20] MEDS: ALBUMIN HUMAN 25% 100 ML IV (12:01)
[2017-10-21] MEDS ORDERED: INFLUENZA VIRUS VACCINE 0.5 ML SYG IM* (09:00)
== END 2017-10-20 17:03 | DRG 335 ==
LOC: MS1 21:31 → ICU 10-13 05:08 → E/R 14:18 → MS4 10-12 16:24 → PP2 10-16 14:04 → ICU 10-13 08:14
PROVIDERS: Family Medicine
PROC: 0DN80ZZ Release Small Intestine, Open Approach (ICD-10-PCS; principal; 2017-10-13 03:00)
PROC: 0WUF0JZ Supplement Abdominal Wall with Synthetic Substitute, Open Approach (ICD-10-PCS; 2017-10-13 03:00)
PROC: 0WBF0ZZ Excision of Abdominal Wall, Open Approach (ICD-10-PCS; 2017-10-13 03:00)
PROC: 0WQF0ZZ Repair Abdominal Wall, Open Approach (ICD-10-PCS; 2017-10-13 03:23)
PROC: 0JB80ZZ Excision of Abdomen Subcutaneous Tissue and Fascia, Open Approach (ICD-10-PCS; 2017-10-13 03:23)
PROC: 05H533Z Insertion of Infusion Device into Right Subclavian Vein, Percutaneous Approach (ICD-10-PCS; 2017-10-13 03:23)
PROC: 5A1945Z Respiratory Ventilation, 24-96 Consecutive Hours (ICD-10-PCS; 2017-10-13 03:23)
PROC: 30233N1 Transfusion of Nonautologous Red Blood Cells into Peripheral Vein, Percutaneous Approach (ICD-10-PCS; 2017-10-13 03:23)
DX: K43.0 Incisional hernia with obstruction, without gangrene (principal); A41.9 Sepsis, unspecified organism; N17.0 Acute kidney failure with tubular necrosis; J96.90 Respiratory failure, unspecified, unspecified whether with hypoxia or hypercapnia; I50.30 Unspecified diastolic (congestive) heart failure; E87.0 Hyperosmolality and hypernatremia; I13.0 Hypertensive heart and chronic kidney disease with heart failure and stage 1 through stage 4 chronic kidney disease, or unspecified chronic kidney disease; K56.50 Intestinal adhesions [bands], unspecified as to partial versus complete obstruction; E11.22 Type 2 diabetes mellitus with diabetic chronic kidney disease; E11.21 Type 2 diabetes mellitus with diabetic nephropathy; E11.40 Type 2 diabetes mellitus with diabetic neuropathy, unspecified; E66.01 Morbid (severe) obesity due to excess calories; Z68.36 Body mass index [BMI] 36.0-36.9, adult; N18.3 Chronic kidney disease, stage 3 (moderate); D50.9 Iron deficiency anemia, unspecified; D63.1 Anemia in chronic kidney disease; E78.5 Hyperlipidemia, unspecified; I87.8 Other specified disorders of veins; I89.0 Lymphedema, not elsewhere classified; M10.9 Gout, unspecified; Z79.4 Long term (current) use of insulin
CPT/HCPCS: 36415; 36430; 36569; 36600; 71045; 74176; 74177; 76775; 76937; 80048; 80053; 80061; 80202; 81001; 82043; 82436; 82728; 82803; 82962; 83036; 83540; 83605; 83690; 83735; 84100; 84133; 84300; 84443; 84560; 85014; 85018; 85025; 85610; 86850; 86900; 86901; 86920; 87040; 87081; 87086; 88302; 88304; 89190; 94002; 94003; 94770; 96374; 96375; 96376; 97162; 99285-25